=== PATIENT | female | born 1945 | race Caucasian/White ===

== ENCOUNTER 2024-02-04 02:16 | Inpatient (IN) ==
[2024-02-04 03:02] LABS: ABS Lymphocytes 0.5 10^3/uL (1.0-4.8); ABS Neutrophils 4.1 10^3/uL (1.5-7.6); Eosinophil % 0.7 %; Hematocrit 31.6 % (35-45); Hemoglobin 10.2 g/dL (11.5-14.3); Lymphocyte % 9.7 %; Mean Corpuscular Hemoglobin 27.1 pg (27-33); Mean Corpuscular Hgb Conc 32.1 g/dL (31-36); Mean Corpuscular Volume 84.3 fL (80-97); Mean Platelet Volume 7.5 fL (7.5-11.2); Nucleated Red Blood Cells % 0.1 %/100WBC (0.0-0.8); Platelet Count 242 10^3/uL (150-450); Red Blood Count 3.75 10^6/uL (3.63-4.92); Red Cell Distribution Width 14.5 % (12-17); White Blood Count 4.7 10^3/uL (3.8-11.8)
[2024-02-04] MEDS: Lactated Ringers 1000 ml BAG 1,000 ML IV ONE ×2 (03:04→04:07)
[2024-02-04] MEDS: Acetaminophen IV 1 GM/100ML 1,000 MG/100 ML BAG IV ONE (03:04)
[2024-02-04 03:34] LABS: Albumin 3.5 g/dL (3.2-5.2); Albumin/Globulin Ratio 1.1 (1-3); C Reactive Protein 274.27 mg/L (<8.01); Calcium 9.2 mg/dL (8.6-10.3); Creatinine, Serum 1.12 mg/dL (0.51-0.95); Globulin 3.1 g/dL (2-4); Potassium 4.3 mmol/L (3.5-5.0); Total Protein 6.6 g/dL (6.4-8.9); eGFR CKD-EPI 50.6 (>60)
[2024-02-04] MEDS: cefTRIAXone 1 gm/50 mL D5W 1 GM/50 ML BAG IV ONE (04:02)
[2024-02-04 10:03] LABS: ABS Lymphocytes 0.6 10^3/uL (1.0-4.8); ABS Monocytes 0.7 10^3/uL (0.0-0.9); ABS Neutrophils 13.2 10^3/uL (1.5-7.6); Eosinophil % 0.2 %; Hematocrit 26.8 % (35-45); Hemoglobin 8.5 g/dL (11.5-14.3); Lymphocyte % 4.2 %; Mean Corpuscular Hemoglobin 26.5 pg (27-33); Mean Corpuscular Hgb Conc 31.8 g/dL (31-36); Mean Corpuscular Volume 83.4 fL (80-97); Mean Platelet Volume 7.5 fL (7.5-11.2); Platelet Count 210 10^3/uL (150-450); Red Blood Count 3.22 10^6/uL (3.63-4.92); Red Cell Distribution Width 14.7 % (12-17); White Blood Count 14.6 10^3/uL (3.8-11.8)
[2024-02-04] MEDS: Enoxaparin 30 MG/0.3 ML SYR SUBCUT SCH (10:10)
[2024-02-04 10:32] LABS: Albumin/Globulin Ratio 1.2 (1-3); Calcium 8.7 mg/dL (8.6-10.3); Creatinine, Serum 0.76 mg/dL (0.51-0.95); Globulin 2.5 g/dL (2-4); Potassium 4.1 mmol/L (3.5-5.0); Total Bilirubin 0.7 mg/dL (0.2-1.0); Total Protein 5.5 g/dL (6.4-8.9); eGFR CKD-EPI 80.7 (>60)
[2024-02-04] MEDS: Cefepime 1 GM in Dextrose 1 GM/50 ML BAG IV SCH (10:51)
[2024-02-05] MEDS: cefTRIAXone 1 gm/50 mL D5W 1 GM/50 ML BAG IV SCH (06:04)
[2024-02-05 10:20] VITALS: BP 114/53
[2024-02-05 10:28] LABS: ABS Basophils 0.1 10^3/uL (0.0-0.1); ABS Eosinophils 0.2 10^3/uL (0.0-0.5); ABS Neutrophils 12.8 10^3/uL (1.5-7.6); Eosinophil % 1.6 %; Hematocrit 31.4 % (35-45); Hemoglobin 9.8 g/dL (11.5-14.3); Lymphocyte % 6.8 %; Mean Corpuscular Hemoglobin 26.5 pg (27-33); Mean Corpuscular Hgb Conc 31.1 g/dL (31-36); Mean Corpuscular Volume 85.2 fL (80-97); Mean Platelet Volume 8.1 fL (7.5-11.2); Platelet Count 239 10^3/uL (150-450); Red Blood Count 3.69 10^6/uL (3.63-4.92); Red Cell Distribution Width 15.1 % (12-17); White Blood Count 15.2 10^3/uL (3.8-11.8)
== END 2024-02-05 12:05 | disposition home or self-care (01) | DRG 872 ==
LOC: ED 02:16 → SUATTDRO 05:13 → EDHOLD 05:13 → MED 11:04
PROVIDERS: ADMIT Internal Medicine; ATTEND Hospitalist